=== PATIENT | male | born 1955 | race Caucasian/White ===

== ENCOUNTER 2022-01-13 10:07 | Observation (INO) | payer OTHER, MEDICAID ==
[2022-01-13 10:34] LABS: #Basophils 0.1 10x3/uL (0.0-0.2); #Eosinphils 0.2 10x3/uL (0.0-0.5); #Monocytes 0.5 10x3/uL (0.0-1.1); #Neutrophils 5.7 10x3/uL (1.5-8.4); %Basophils 0.8 % (0.0-2.0); %Eosinophils 2.8 % (0.0-6.0); %Lymphocytes 23.5 % (18.0-47.0); %Monocytes 5.4 % (0.0-10.0); %Neutrophils 67.1 % (40.0-75.0); Hemoglobin 15.3 g/dL (13.5-17.5); Mean Corpuscular HGB CONC 35.9 g/dL (32.0-36.0); Mean Corpuscular Hemoglobin 30.9 pg (27.0-33.0); Mean Corpuscular Volume 86.1 fl (81.2-95.1); Platelet Count 183 10x3/uL (150-450); RBC Distribution Width 11.9 % (11.5-14.5); Red Blood Cell (RBC) Count 4.95 10x6/uL (4.32-5.72); White Blood Cell (WBC) Count 8.5 10x3/uL (3.5-10.5)
[2022-01-13] MEDS ORDERED: Aspirin Chewable 81 MG TAB ONE (11:00)
[2022-01-13 11:05] LABS: ALT (SGPT) 18 U/L (8-55); AST (SGOT) 20 U/L (5-34); Albumin 4.4 g/dL (3.4-4.8); Alkaline Phosphatase 84 U/L (40-110); Anion Gap 14 mmol/L (10-20); BUN (Urea Nitrogen) 12 mg/dL (8.4-25.7); Bilirubin, Total 0.5 mg/dL (0.2-1.2); Calc. Creatinine Clearance 0 mL/min (70-130); Calcium 9.7 mg/dL (7.8-10.44); Carbon Dioxide 24 mmol/L (23-31); Chloride 106 mmol/L (98-107); Glucose 114 mg/dL (80-115); Potassium 4.2 mmol/L (3.5-5.1); Protein, Total 7.4 g/dL (5.8-8.1); Sodium 140 mmol/L (136-145)
[2022-01-13 13:16] LABS: Troponin I Less than 0.010 ng/mL (< 0.028)
[2022-01-13] MEDS ORDERED: Acetaminophen 650 MG Suppository PR PRN (16:03)
[2022-01-13] MEDS ORDERED: Nitroglycerin 0.4 MG TAB (25 Tab Bottle) SL PRN (16:03)
[2022-01-13 16:54] LABS: Troponin I Less than 0.010 ng/mL (< 0.028)
[2022-01-13 16:57] VITALS: BMI 29.4
[2022-01-13] MEDS ORDERED: Melatonin 3 MG TAB PO PRN (20:49)
[2022-01-13] MEDS ORDERED: Melatonin 3 MG TAB PO SCH (21:00)
[2022-01-13] MEDS ORDERED: Atorvastatin Calcium 20 MG TAB PO SCH (21:00)
[2022-01-14] MEDS: Acetaminophen 325 MG TAB PO PRN ×2 (04:18→12:35)
[2022-01-14 04:59] LABS: #Basophils 0.1 10x3/uL (0.0-0.2); #Eosinphils 0.4 10x3/uL (0.0-0.5); #Monocytes 0.7 10x3/uL (0.0-1.1); #Neutrophils 5.7 10x3/uL (1.5-8.4); %Basophils 0.8 % (0.0-2.0); %Lymphocytes 25.4 % (18.0-47.0); %Neutrophils 61.3 % (40.0-75.0); Hemoglobin 15.7 g/dL (13.5-17.5); Mean Corpuscular HGB CONC 34.5 g/dL (32.0-36.0); Mean Corpuscular Hemoglobin 30.3 pg (27.0-33.0); Mean Corpuscular Volume 87.8 fl (81.2-95.1); Mean Platelet Volume 11.2 fl (7.4-10.4); Platelet Count 183 10x3/uL (150-450); RBC Distribution Width 11.9 % (11.5-14.5); Red Blood Cell (RBC) Count 5.18 10x6/uL (4.32-5.72); White Blood Cell (WBC) Count 9.2 10x3/uL (3.5-10.5)
[2022-01-14 05:12] LABS: Anion Gap 15 mmol/L (10-20); BUN (Urea Nitrogen) 15 mg/dL (8.4-25.7); Calc. Creatinine Clearance 74 mL/min (70-130); Calcium 9.5 mg/dL (7.8-10.44); Carbon Dioxide 23 mmol/L (23-31); Chloride 106 mmol/L (98-107); Glucose 114 mg/dL (80-115); Sodium 140 mmol/L (136-145)
[2022-01-14] MEDS ORDERED: Aspirin Chewable 81 MG TAB PO SCH (09:00)
[2022-01-14 11:59] LABS: SARS-CoV-2 PCR by NAA Not Detected (NotDetected)
[2022-01-14] MEDS ORDERED: Ibuprofen 600 MG TAB PO SCH (15:45)
[2022-01-14 18:17] VITALS: BP 134/75; TEMP 98.2
== END 2022-01-14 18:27 | disposition home or self-care (01) ==
LOC: CSHERS 10:07 → CSHTELE 12:27 → UNDOADMOB 16:45 → CSHTELE 16:45
PROVIDERS: ADMIT Family Medicine; ATTEND Physician Assistant
DX: R07.2 Precordial pain (principal); I10 Essential (primary) hypertension; E78.5 Hyperlipidemia, unspecified; I25.10 Atherosclerotic heart disease of native coronary artery without angina pectoris; Z95.5 Presence of coronary angioplasty implant and graft; R20.0 Anesthesia of skin; R53.81 Other malaise; Z20.822 Contact with and (suspected) exposure to COVID-19; Z79.82 Long term (current) use of aspirin; Z79.02 Long term (current) use of antithrombotics/antiplatelets; Z79.899 Other long term (current) drug therapy
CPT/HCPCS: 70551; 71045; 80048; 80053; 83735; 83880; 84484 ×2; 85025 ×2; 93005; 93306; 94760; 99285; U0003; U0005; 36415; G0378

== ENCOUNTER 2022-08-01 13:51 | Outpatient (CLI) | payer OTHER, MEDICAID ==
[2022-08-01 14:46] LABS: Hemoglobin 14.7 g/dL (13.5-17.5); Mean Corpuscular HGB CONC 35.6 g/dL (32.0-36.0); Mean Corpuscular Hemoglobin 31.7 pg (27.0-33.0); Mean Platelet Volume 11.2 fl (7.4-10.4); Platelet Count 224 10x3/uL (150-450); RBC Distribution Width 12.1 % (11.5-14.5); Red Blood Cell (RBC) Count 4.64 10x6/uL (4.32-5.72); White Blood Cell (WBC) Count 9.2 10x3/uL (3.5-10.5)
[2022-08-01 15:05] LABS: Anion Gap 15 mmol/L (10-20); BUN (Urea Nitrogen) 16 mg/dL (8.4-25.7); Calc. Creatinine Clearance 0 mL/min (70-130); Calcium 9.1 mg/dL (7.8-10.44); Carbon Dioxide 23 mmol/L (23-31); Chloride 106 mmol/L (98-107); Estimated GFR 74; Glucose 90 mg/dL (80-115); Potassium 4.3 mmol/L (3.5-5.1); Sodium 140 mmol/L (136-145)
== END 2022-08-01 13:52 | disposition home or self-care (01) ==
LOC: CSHLAB 13:51
PROVIDERS: ATTEND Orthopaedic Surgery
DX: Z01.818 Encounter for other preprocedural examination (principal)
CPT/HCPCS: 80048; 85027; 93005; 93010

== ENCOUNTER 2022-08-05 09:02 | Day surgery (SDC) | payer OTHER, MEDICAID ==
[2022-08-04 09:44] VITALS: BMI 31.9
[2022-08-05] MEDS ORDERED: EPINEPHrine 1 MG/ML AMP ONE (10:14)
[2022-08-05] MEDS ORDERED: Neomycin-Polymyxin 1 ML AMP ONE (10:15)
[2022-08-05] MEDS ORDERED: Bupivacaine PF 0.5% 30 ML VIAL ONE (10:15)
[2022-08-05] MEDS ORDERED: Lidocaine 1% PF 5 ML VIAL ONE (11:15)
[2022-08-05] MEDS ORDERED: Fentanyl 100 MCG/2 ML VIAL ONE (11:15)
[2022-08-05] MEDS ORDERED: PROPOFOL 20 ML ONE (11:15)
[2022-08-05] MEDS ORDERED: Ondansetron PF 4 MG/2 ML Vial ONE (11:15)
[2022-08-05] MEDS ORDERED: Midazolam HCl 2 mg/2 ml Vial ONE (11:15)
[2022-08-05] MEDS ORDERED: CEFAZOLIN 2 GM VIAL ONE (11:50)
== END 2022-08-05 14:20 | disposition home or self-care (01) ==
LOC: CSHSDC 09:02
PROVIDERS: ATTEND Orthopaedic Surgery
PROC: 0LN80ZZ Release Left Hand Tendon, Open Approach (ICD-10-PCS; principal; 2022-08-05)
DX: M65.332 Trigger finger, left middle finger (principal); I25.10 Atherosclerotic heart disease of native coronary artery without angina pectoris; E78.5 Hyperlipidemia, unspecified; I25.2 Old myocardial infarction; Z79.82 Long term (current) use of aspirin; Z79.899 Other long term (current) drug therapy
CPT/HCPCS: J0171; J2250; J2405; J2704; J3010; S0020